=== PATIENT | male | born 1940 | race Two or more races ===

== ENCOUNTER 2018-09-20 08:20 | Day surgery (SDC) | payer OTHER ==
[~2018-09-20 08:20] MED LIST: AMARYL PO; FORTAMET1000 MG PO; HYZAAR 100-251 EACH PO; SYNTHROID50 MCG PO; ULTRACET PO; URIN D.S. TABL1 EACH PO
== END 2018-09-20 14:50 | disposition home or self-care (01) ==
LOC: AMB-ENDOS 08:20
DX: D12.8 Benign neoplasm of rectum (principal); R19.4 Change in bowel habit; K64.8 Other hemorrhoids; Z12.11 Encounter for screening for malignant neoplasm of colon

== ENCOUNTER 2018-11-17 07:44 | Outpatient (CLI) | payer OTHER | END 2018-11-17 07:56 | disposition home or self-care (01) | LOC: TOM 07:44 | DX: I63.50 Cerebral infarction due to unspecified occlusion or stenosis of unspecified cerebral artery (principal); R41.2 Retrograde amnesia; G45.9 Transient cerebral ischemic attack, unspecified ==

== ENCOUNTER → 2020-07-03 | Emergency (ER) | payer OTHER ==
[~2020-07-03] VITALS: Ht 170.2 cm; Wt 80.7 kg
[~2020-07-03] MED LIST changes: +LEVAQUIN500 MG PO
== END | disposition home or self-care (01) ==
LOC: ER 08:15
DX: R50.9 Fever, unspecified (principal); Z20.828 Contact with and (suspected) exposure to other viral communicable diseases; R30.0 Dysuria; R53.81 Other malaise; B96.29 Other Escherichia coli [E. coli] as the cause of diseases classified elsewhere

== ENCOUNTER 2021-01-29 07:50 | Outpatient (CLI) | payer OTHER | END 2021-01-29 08:02 | disposition home or self-care (01) | LOC: SONOGRAMA 07:50 → MAMO-SONO 08:45 | PROVIDERS: ATTEND Internal Medicine Cardiovascular Disease | DX: M12.9 Arthropathy, unspecified (principal) ==

== ENCOUNTER → 2022-09-18 12:12 | Outpatient (CLI) | payer OTHER | END | disposition home or self-care (01) | LOC: EKG 12:12 → LAB 12:12 | PROVIDERS: ATTEND Internal Medicine Cardiovascular Disease | DX: I10 Essential (primary) hypertension (principal) ==

== ENCOUNTER 2023-10-18 10:22 | Outpatient (CLI) | payer OTHER | END 2023-10-18 10:30 | disposition home or self-care (01) | LOC: SONOGRAMA 10:22 | PROVIDERS: ATTEND Specialist | DX: R22.1 Localized swelling, mass and lump, neck (principal) ==

== ENCOUNTER 2023-11-15 13:30 | Outpatient (CLI) | payer OTHER | END 2023-11-15 13:35 | disposition home or self-care (01) | LOC: SONOGRAMA 13:30 | PROVIDERS: ATTEND Pathology Anatomic Pathology & Clinical Pathology | DX: R22.1 Localized swelling, mass and lump, neck (principal); L72.0 Epidermal cyst ==

== ENCOUNTER 2024-07-03 11:49 | Outpatient (CLI) | payer OTHER | END 2024-07-03 11:50 | disposition home or self-care (01) | LOC: LAB 11:49 | PROVIDERS: ATTEND Specialist | DX: L02.11 Cutaneous abscess of neck (principal) ==

== ENCOUNTER 2025-06-15 07:22 | Outpatient (CLI) | payer OTHER | END 2025-06-15 07:27 | disposition home or self-care (01) | LOC: NUCLEAR 07:22 | PROVIDERS: ATTEND Internal Medicine Cardiovascular Disease | DX: I20.9 Angina pectoris, unspecified (principal) | CPT/HCPCS: 78452; 93017; A9500 ==

== ENCOUNTER 2025-08-21 06:10 | Outpatient (CLI) | payer OTHER | END 2025-08-21 14:23 | disposition home or self-care (01) | LOC: EKG 06:10 | PROVIDERS: ATTEND Internal Medicine Cardiovascular Disease | DX: I15.8 Other secondary hypertension (principal); I10 Essential (primary) hypertension ==